=== PATIENT | female | born 1955 | race Caucasian/White ===

== ENCOUNTER 2017-02-21 10:48 | Emergency (ER) | payer MEDICARE, OTHER | END 2017-02-21 16:50 | disposition short-term general hospital (02) | LOC: ER 10:48 | DX: K56.60 Unspecified intestinal obstruction (principal); F17.200 Nicotine dependence, unspecified, uncomplicated; Z90.49 Acquired absence of other specified parts of digestive tract; Z90.710 Acquired absence of both cervix and uterus; Z79.82 Long term (current) use of aspirin; Z79.899 Other long term (current) drug therapy; Z88.8 Allergy status to other drugs, medicaments and biological substances | CPT/HCPCS: 36415; 96361; 96365; 96375; 96376; Q9967 ==